=== PATIENT | female | born 1930 | race Caucasian/White ===

== ENCOUNTER 2016-09-16 10:40 | Emergency (ER) | payer MEDICARE, BC ==
--- NOTE | 2016-09-16 11:24 | ERNOTE ---
Lower Extremity HPI - Narrative Date of Service: 09/16/16 - General Lower Extremities Pain: foot: right Time Seen by Provider: 09/16/16 11:06 Source: patient, RN notes reviewed Exam Limitations: dementia - Immun/Allergies/Home Medications Immunizations: IMMUNIZATION HX Immunizations Up to Date Yes History of Influenza Vaccine Yes Hx Pneumococcal Vaccination Yes Allergies/Adverse Reactions: Allergies Allergy/AdvReac Type Severity Reaction Status Date / Time codeine [Codeine] Allergy Unknown Verified 09/16/16 10:52 Sulfa (Sulfonamide Allergy Unknown Verified 09/16/16 10:52 Antibiotics) [Sulfa(Sulfonamide Antibiotics)] Home Medications: HOME MEDICATIONS Acetaminophen [Tylenol] 650 mg PO Q6H PRN 01/10/16 [Last Taken Unknown] Carboxymethylcellulose Sodium [Refresh Tears] 15 ml OP QID PRN 01/10/16 [Last Taken Unknown] Esomeprazole Magnesium [Nexium] 40 mg PO DAILY 01/10/16 [Last Taken Unknown] FLUoxetine HCL [Prozac] 20 mg PO DAILY 01/10/16 [Last Taken Unknown] Gabapentin 200 mg PO HS 01/10/16 [Last Taken Unknown] Hydrocortisone [Preparation H] 1 appl TP PRN PRN 01/10/16 [Last Taken Unknown] Menthol [Biofreeze] 1 appl TP PRN PRN 01/10/16 [Last Taken Unknown] Tolterodine Tartrate [Detrol LA] 4 mg PO HS 01/10/16 [Last Taken Unknown] Dextran 70/Hypromellose [Artificial Tears Eye Drops] 15 ml OP QID 09/16/16 [ Last Taken Unknown] Levothyroxine Sodium [Synthroid] 50 mcg PO DAILY 09/16/16 [Last Taken Unknown] - History of Present Illness Narrative: 85 y/o female brought to the ED by private vehicle from the [facility] for right foot pain due to a fall that occurred yesterday. The patient reports that she was walking with her walker and fell. She is not sure why she fell or how she injured her foot. She also reports a bruise on her forehead from the fall. She is unsure if she lost consciousness, but does report a headache. She does not know if she has taken anything for pain today. Date (Duration): 09/15/16 Occurred: yesterday Location of Incident: other - [place] Method of Injury: Reports: fell Reason for Fall: Reports: unknown Loss of Consciousness: Reports: unsure Associated Symptoms: Reports: unable to bear weight, headache. Denies: dizzy/ light headedness, vomiting/diarrhea Other Injuries: Reports: head Review of Systems - Review of Systems Constitutional: Present: recent illness. Absent: fatigue, malaise EYE: Absent: blurred vision, vision changes ENT: Absent: ear discharge, nasal drainage Respiratory: Absent: shortness of breath, cough Cardiology: Absent: chest pain, edema Gastrointestinal/Abdominal: Absent: nausea, vomiting Genitourinary: Present: no symptoms reported Musculoskeletal: Present: joint pain. Absent: neck pain Skin: Present: lumps, change in color. Absent: rash, lesions Neurological: Present: headache. Absent: dizziness/light-headedness Endocrine: Present: no symptoms reported Hematologic/Lymphatic: Present: no symptoms reported Psych: Present: no symptoms reported - Patient's Past Medical History Patient History - Medical: Alcohol Abuse, Arthritis, Cataracts, Chronic Pain, Dementia, Depression, GERD, Hypothyroidism, Osteoarthritis, Rheumatoid Arthritis Patient History - Cardiac/Respiratory: History Unknown Patient History - Cancer: Melanoma Patient History - Surgical Procedures: Cataracts LMP (females 10-50): Menopausal - Family History Mother Family History - Medical: , No pertinent hx Father Family History - Medical: Family History - Cardiac/Respiratory: Coronary Heart Disease - Social History Living Situations: assisted living Smoking Status: Never smoker Alcohol Use: other Drug Use: none Physical Exam - Physical Exam General Appearance: Present: wd/wn, alert, no apparent distress Eye Exam: Normal inspection: bilateral, PERRL: bilateral, EOMI: bilateral Ears, Nose, Throat: Present: normal ENT inspection, hearing grossly normal, normal pharynx. Absent: abnormal TM (R), abnormal TM (L) Neck: Present: normal inspection, nontender, supple, full range of motion Respiratory: Present: no respiratory distress, normal breath sounds, no accessory muscle use, lungs clear Cardiovascular/Chest: Present: regular rate, rhythm, no murmur, normal peripheral pulses Extremity Exam: Present: normal range of motion, extremity edema - edema and ecchymosis to dorsum of right foot, painful with palpation. Absent: joint swelling Neurological Exam: Present: alert, normal mood/affect, no motor/sensory deficits , disoriented to time Skin Exam: Present: warm/dry, pallor ED Progress - Vital Signs Patient's Vital Signs:: I have reviewed the patient's vital signs. Vital Signs: Vital Signs 09/16/16 10:46 Temperature 35.2 C L Pulse Rate 70 Respiratory 12 Rate Blood Pressure 180/75 O2 Sat by Pulse 99 Oximetry - X-Ray X-Ray #1 X-Ray: foot - Right Interpretation: Reviewed by me X-ray Comments: IMPRESSION: 1. ACUTE ANGULATED FOURTH METATARSAL NECK FRACTURE. 2. ASSOCIATED SOFT TISSUE SWELLING. 3. EXTENSIVE POSTSURGICAL CHANGES DISCUSSED ABOVE. 4. ADDITIONAL CHRONIC DEGENERATIVE CHANGES DISCUSSED ABOVE. - CT/Ultrasound CT/Ultrasound Narrative: Technique: Contiguous axial CT images through the brain without contrast. Series were run in both soft tissue and bone algorithm. Comparison: Prior noncontrasted head CT dated 01/11/2016. Findings: There is scattered periventricular and subcortical white matter hypodensities consistent with chronic microvascular ischemic white matter disease. There is diffuse brain atrophy with associated increasing size of the CSF containing spaces. There is no acute loss of brannon-white differentiation appreciated. There is no mass effect or midline shift. No intra-axial or extra axial blood products identified. The visualized paranasal sinuses and mastoid air cells are clear. Minimal right frontal and temporal scalp swelling and bruising. No underlying fracture. The skull base and calvarium are intact. IMPRESSION: 1. RIGHT-SIDED SCALP SWELLING AND BRUISING. NO UNDERLYING FRACTURE. 2. OTHERWISE NO ACUTE INTRACRANIAL ABNORMALITY IDENTIFIED. Electronically signed by Adolfo Gupta D.O.. - Progress/Reassessment Chief Complaint: Lower Extremity Pain/ Injury Progress:: Unchanged Plan - Plan Plan: Post-op shoe to right foot - to contact podiatry for follow up Departure Clinical Impression: Closed head injury Qualifiers: Encounter type: initial encounter Qualified Code(s): S09.90XA - Unspecified injury of head, initial encounter Metatarsal fracture Qualifiers: Encounter type: initial encounter Metatarsal bone: fourth Fracture type: closed Fracture alignment: displaced Laterality: right Qualified Code(s): S92.341A - Displaced fracture of fourth metatarsal bone, right foot, initial encounter for closed fracture - Departure Disposition: [place] self-care Condition: Stable Instructions: Head Injury, Adult, [id number], Metatarsal Fracture Additional Instructions: Where surgical shoe for support Ice and elevate the foot when able It is okay to put some weight on the foot Tylenol for pain Contact Dr. Cabezas's office to schedule a follow-up appointment Referrals: Lou Cabezas DPM [Staff Physician] -
[2016-09-16] MEDS ORDERED: ACETAMINOPHEN 325 MG TABLET PO ONE (12:31)
[2016-09-16] MEDS ORDERED: ACETAMINOPHEN 325 MG TABLET ONE (12:42)
[2016-09-16 13:00] VITALS: BP 170/75
== END 2016-09-16 13:00 | disposition home or self-care (01) ==
LOC: ER 10:40
PROC: 2W3SXYZ Immobilization of Right Foot using Other Device (ICD-10-PCS; principal; 2016-09-16)
DX: S92.341A Displaced fracture of fourth metatarsal bone, right foot, initial encounter for closed fracture (principal); S09.90XA Unspecified injury of head, initial encounter; W19.XXXA Unspecified fall, initial encounter; Y93.01 Activity, walking, marching and hiking; Y92.129 Unspecified place in nursing home as the place of occurrence of the external cause

== ENCOUNTER 2017-01-12 07:55 | Emergency (ER) | payer MEDICARE, BC ==
--- OUTSIDE RECORDS SUMMARY | 2017-01-12 08:19 | XMS REPORT | Continuity of Care Document ---
:1930 Author Organization [facility] ([facility]) Address [address] [place] [address] Phone [phone] Care Team Providers Name Role Phone Miguel Lisa Primary Care Provider [phone] Source Comments This disclosure is being made pursuant to the Care Everywhere program, applicable federal and state laws, and may not contain all informaitonavailable regarding this patient.[facility] ([facility]) Active Allergies and Adverse Reactions Allergen Noted Date Severity Reactions Comments Codeine 02/20/2009 Nausea & Vomiting Sulfa (Sulfonamide Antibiotics) 02/20/2009 Rash 40 years Current Medications Prescription Sig. Disp. Refills Start Date End Date Status FLUOXETINE, BULK, Active TRAZODONE HCL (TRAZODONE, Active BULK,) HYDROcodone-acetaminophen take 1 Tab by Active (LORTAB) 5-500 mg per mouth every 6 tablet hours as needed for Pain. Glucosamine take by mouth. Active &[id number] [id number] mg Tab CALCIUM CITRATE/VITAMIN D3 take by mouth. Active (CALCIUM CITRATE + D PO) MULTIVITAMINS take by mouth. Active (MULTI-VITAMIN HI-PO PO) Active Problems Problem Noted Date Macular degeneration 02/20/2009 Cataract, Senile, left eye 02/20/2009 Pseudophakia, right eye 02/20/2009 Social History Tobacco Use Types Packs/Day Years Used Date Never Smoker Alcohol Use Drinks/Week oz/Week Comments Yes social Plan of Care Health Maintenance Due Date Last Done Comments Hepatitis B Vaccine (1 of 3 - Primary Series) 1930 Tdap Vaccine 1941 Lipid Disorder Screening 1948 Td Vaccine 1948 Colonoscopy 09/26/1980 Zoster Vaccine 1990 Osteoporosis Screening (DXA Bone Density) 1995 Pneumococcal Vaccine (1 of 2 - PCV13) 1995 Influenza Vaccine: Seasonal (#1) 03/23/2016 Results from Last 3 Months Not on file
[2017-01-12] MEDS ORDERED: ACETAMINOPHEN 500 MG TABLET PO ONE (09:27)
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
[2017-01-12 09:41] VITALS: BP 174/86
== END 2017-01-12 09:53 | disposition home or self-care (01) ==
LOC: ER 07:55
DX: Z03.89 Encounter for observation for other suspected diseases and conditions ruled out (principal); W18.39XA Other fall on same level, initial encounter; Y92.128 Other place in nursing home as the place of occurrence of the external cause; E03.9 Hypothyroidism, unspecified; F32.9 Major depressive disorder, single episode, unspecified; K21.9 Gastro-esophageal reflux disease without esophagitis